=== PATIENT | female | born 1980 | race Caucasian/White ===

== ENCOUNTER 2020-07-14 18:49 | Outpatient (REF) | payer OTHER, SELFPAY ==
[2020-07-14 19:33] LABS: Calcium 9.6 mg/dL (8.5-10.1); TSH (W/Ref FT4) 2.75 uIU/mL (0.36-3.74)
[2020-07-14 20:09] LABS: Vitamin D 25 Total 16.1 ng/mL (30-100)
== END 2020-07-14 18:50 | disposition home or self-care (01) ==
LOC: NCHCN 18:49
PROVIDERS: PCP Dentist General Practice; Visit Provider Nurse Practitioner Family
DX: E89.2 Postprocedural hypoparathyroidism (principal)
CPT/HCPCS: 82306; 82310; 84443